=== PATIENT | female | born 1995 | race American Indian/Alaskan Native ===

== ENCOUNTER 2017-01-10 17:31 | Emergency (ER) | payer MEDICAID ==
[2017-01-10 18:11] VITALS: BP 125/74
--- NOTE | 2017-01-10 18:30 | EDM.PDOC ---
ED HPI RENAL/ - General Chief Complaint: Genitourinary Problem Stated Complaint: POSSIBLE UTI Time Seen by Provider: 01/10/17 18:25 Source of Information: Reports: Patient History Limitations: Reports: No limitations - History of Present Illness INITIAL COMMENTS - FREE TEXT/NARRATIVE: This 21 yo female patient reports to the ED with urinary frequency (started 2 weeks ago) and burning with urination (started 2 days ago). The patient reports she has attempted to get into the clinic, but has not been seen yet due to insurance issues. Symptom Onset Date: 12/28/16 Timing/Duration: Reports: Constant, Getting worse Location: Reports: generalized (burning with urination and frequency) Quality: Reports: burning Severity: moderate Improves with: Reports: other Worsens with: Reports: other Context: Reports: other Associated Symptoms: Reports: burning, frequency - Related Data Allergies/ADRs: Allergies Allergy/AdvReac Type Severity Reaction Status Date / Time No Known Allergies Allergy Verified 07/02/16 01:48 Home Meds: Home Meds . 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: Musculoskeletal History: Reports: None Neurological History: Reports: None Psychiatric History: Reports: Anxiety, Depression Endocrine/Metabolic History: Reports: None Hematologic History: Reports: Anemia Immunologic History: Reports: None Oncologic (Cancer) History: Reports: None Dermatologic History: Reports: None - Infectious Disease History Infectious Disease History: Reports: None - Past Surgical History Head Surgeries/Procedures: Reports: None HEENT Surgical History: Reports: None Cardiovascular Surgical History: Reports: None Respiratory Surgical History: Reports: None GI Surgical History: Reports: None Female Surgical History: Reports: None Endocrine Surgical History: Reports: None Neurological Surgical History: Reports: None Musculoskeletal Surgical History: Reports: None Oncologic Surgical History: Reports: None Dermatological Surgical History: Reports: None Social & Family History - Family History Family Medical History: Noncontributory Psychiatric: Reports: Depression, Panic attack - Tobacco Use Smoking Status *Q: Never Smoker Second Hand Smoke Exposure: No - Caffeine Use Caffeine Use: Reports: Tea - Recreational Drug Use Recreational Drug Use: No ED ROS GENERAL - Review of Systems Review Of Systems: ROS reveals no pertinent complaints other than HPI. ED EXAM, RENAL/ - Physical Exam Exam: See Below Exam Limited By: No limitations General Appearance: alert, WD/WN, mild distress Eye Exam: bilateral eye: EOMI, normal inspection, PERRL Ears: normal external exam, normal canal, hearing grossly normal, normal TMs Nose: normal inspection, normal mucosa, no blood Throat/Mouth: Normal inspection, Normal lips, Normal teeth, Normal gums, Normal oropharynx, Normal voice, No airway compromise Head: atraumatic, normocephalic Neck: normal inspection, supple, non-tender, full range of motion Respiratory/Chest: no respiratory distress, lungs clear, normal breath sounds, no accessory muscle use, chest non-tender Cardiovascular: normal peripheral pulses, regular rate, rhythm, no edema, no gallop, no JVD, no murmur, no rub GI/Abdominal: normal bowel sounds, soft, non tender, no organomegaly, no distention, no abnormal bruit, no mass (Female) Exam: Deferred Rectal (Female) Exam: Deferred Back Exam: normal inspection, full range of motion, NT Extremities: normal inspection, normal range of motion, non-tender, normal capillary refill, no pedal edema Neurological: alert, oriented, CN II-XII intact, normal cognition, normal gait, normal reflexes, no motor/sensory deficits Psychiatric: normal affect, normal mood Skin Exam: Warm, Dry, Intact, Normal color, No rash Lymphatic: no adenopathy Course - Vital Signs Last Recorded V/S: Last Vital Signs Temp 36.2 C 01/10/17 18:10 Pulse 98 01/10/17 18:10 Resp 16 01/10/17 18:10 BP 125/74 01/10/17 18:10 Pulse Ox 100 01/10/17 18:10 - Orders/Labs/Meds Labs: Laboratory Tests 01/10/17 01/10/17 01/10/17 Range/Units 18:07 18:34 18:34 Urine Color Yellow (YELLOW) Urine Appearance Slightly cloudy (CLEAR) Urine pH 5.0 (5.0-9.0) Ur Specific [place] 1.025 (1.005-1.030) Urine Protein Negative (NEGATIVE) Urine Glucose (UA) Negative (NEGATIVE) Urine Ketones Negative (NEGATIVE) Urine Occult Blood Negative (NEGATIVE) Urine Nitrite Negative (NEGATIVE) Urine Bilirubin Negative (NEGATIVE) Urine Urobilinogen 0.2 (0.2-1.0) mg/dL Ur Leukocyte Esterase Negative (NEGATIVE) Urine RBC 0-5 /HPF Urine WBC 0-5 (0-5/HPF) /HPF Ur Epithelial Cells Few /HPF Amorphous Sediment Few (0/HPF) /HPF Urine Bacteria Rare (0-FEW/HPF) /HPF Urine HCG, Qual Negative Urine Opiates Screen Negative (NEGATIVE) Ur Oxycodone Screen Negative (NEGATIVE) Urine Methadone Screen Negative (NEGATIVE) Ur Barbiturates Screen Negative (NEGATIVE) U Tricyclic Antidepress Negative (NEGATIVE) Ur Phencyclidine Scrn Negative (NEGATIVE) Ur Amphetamine Screen Negative (NEGATIVE) U Methamphetamines Scrn Negative (NEGATIVE) Urine MDMA Screen Negative (NEGATIVE) U Benzodiazepines Scrn Negative (NEGATIVE) Urine Cocaine Screen Negative (NEGATIVE) U Marijuana (THC) Screen Negative (NEGATIVE) Departure - Departure Time of Disposition: 19:06 Disposition: Home, Self-Care 01 Condition: good Clinical Impression: Urine frequency Forms: ED Department Discharge Care Plan Goals: The patient was advised of the examination and lab results during the visit. The patient was encouraged to continue to drink plenty of water. The patient asked if she could take cranberry pills and was advised to take the pills as directed. If the patient has any symptoms or concerns, the patient should follow -up with her primary care provider or return to the emergency department.
== END 2017-01-10 19:11 | disposition home or self-care (01) ==
LOC: DL.ED 17:31
DX: R35.0 Frequency of micturition (principal); K21.9 Gastro-esophageal reflux disease without esophagitis; F41.9 Anxiety disorder, unspecified; F32.9 Major depressive disorder, single episode, unspecified; D64.9 Anemia, unspecified; Z87.440 Personal history of urinary (tract) infections
CPT/HCPCS: 80305; 81001; 81025; 99283

== ENCOUNTER 2017-07-03 00:02 | Emergency (ER) | payer MEDICAID ==
[2017-07-03] MEDS ORDERED: Gentamicin 0.3% Ophth Soln 5 ML Bottle EYEBOTH ONE (00:03)
[2017-07-03 00:28] VITALS: BP 123/81
[2017-07-03] MEDS ORDERED: Amoxicillin/Clavulanate K 875-125 MG Tab ONE (02:24)
[2017-07-03] MEDS ORDERED: Gentamicin 0.3% Ophth Soln 5 ML Bottle ONE (02:24)
--- NOTE | 2017-07-03 02:35 | EDM.PDOC ---
ED HPI GENERAL MEDICAL PROBLEM - General Chief Complaint: Respiratory Problem Stated Complaint: SICK [id number] Time Seen by Provider: 07/03/17 01:00 Source of Information: Reports: Patient History Limitations: Reports: No Limitations - History of Present Illness INITIAL COMMENTS - FREE TEXT/NARRATIVE: c/o 3 day hx productive cough- green phlegm, sore throat, chills and yellow crusting on both eye starting this am. Nasal congestion. Headache Pain Score (Numeric/FACES): 6 - Related Data Allergies Allergy/AdvReac Type Severity Reaction Status Date / Time No Known Allergies Allergy Verified 07/03/17 00:28 Home Meds: Home Meds . 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: Musculoskeletal History: Reports: None Neurological History: Reports: None Psychiatric History: Reports: Anxiety, Depression Endocrine/Metabolic History: Reports: None Hematologic History: Reports: Anemia Immunologic History: Reports: None Oncologic (Cancer) History: Reports: None Dermatologic History: Reports: None - Infectious Disease History Infectious Disease History: Reports: None - Past Surgical History Head Surgeries/Procedures: Reports: None HEENT Surgical History: Reports: None Cardiovascular Surgical History: Reports: None Respiratory Surgical History: Reports: None Endocrine Surgical History: Reports: None Neurological Surgical History: Reports: None Musculoskeletal Surgical History: Reports: None Oncologic Surgical History: Reports: None Dermatological Surgical History: Reports: None Social & Family History - Family History Family Medical History: Noncontributory Psychiatric: Reports: Depression, Panic Attack - Tobacco Use Smoking Status *Q: Never Smoker Second Hand Smoke Exposure: No - Caffeine Use Caffeine Use: Reports: Tea - Recreational Drug Use Recreational Drug Use: No ED ROS GENERAL - Review of Systems Review Of Systems: ROS reveals no pertinent complaints other than HPI. ED EXAM, GENERAL - Physical Exam Exam: See Below Exam Limited By: No Limitations General Appearance: Alert, Mild Distress Eye Exam: Bilateral Eye: EOMI, Other (thick yellow disharge bilateral lids and inner canthus) Ears: Normal External Exam, Other (middle ear effusions, no otitis) Nose: Normal Inspection Throat/Mouth: Inflammation (posterior pharnyx) Head: Atraumatic, Normocephalic Neck: Normal Inspection, Lymphadenopathy (L), Lymphadenopathy (R) Respiratory/Chest: Wheezing (intermittent exp wheeze clear with cough) Cardiovascular: Normal Peripheral Pulses, Regular Rate, Rhythm GI/Abdominal: Normal Bowel Sounds Extremities: Normal Inspection, Normal Range of Motion Neurological: Alert, Oriented, CN II-XII Intact, Normal Cognition Skin Exam: Warm, Dry, Normal Color Course - Vital Signs Last Recorded V/S: Last Vital Signs Temp 99.0 F 07/03/17 00:15 Pulse 122 H 07/03/17 00:15 Resp 18 07/03/17 00:15 BP 123/81 07/03/17 00:15 Pulse Ox 98 07/03/17 00:15 - Orders/Labs/Meds Meds: Medications Discontinued Medications Generic Name Dose Route Start Last Admin Trade Name Leviq PRN Reason Stop Dose Admin Amoxicillin/Clavulanate Potassium Confirm 07/03/17 02:24 07/03/17 02:39 Augmentin 875 Mg/125 Mg Administered 07/03/17 02:25 1 tab Dose Administration 1 tab .ROUTE .STK-MED ONE Gentamicin Sulfate Confirm 07/03/17 02:24 07/03/17 02:40 Garamycin 0.3% Ophth Soln Administered 07/03/17 02:25 Not Given Dose 5 ml .ROUTE .STK-MED ONE Departure - Departure Time of Disposition: 02:30 Disposition: Home, Self-Care 01 Condition: Good Clinical Impression: Conjunctivitis Qualifiers: Conjunctivitis type: acute Acute conjunctivitis type: unspecified Laterality: bilateral Qualified Code(s): H10.33 - Unspecified acute conjunctivitis, bilateral Acute bronchitis Qualifiers: Bronchitis organism: unspecified organism Qualified Code(s): J20.9 - Acute bronchitis, unspecified - Discharge Information Instructions: Acute Bronchitis, [id number]-Cilb Forms: ED Department Discharge Additional Instructions: increase fluid tylenol or ibuprofen for discomfort/fever humidifier augmentin 875mg one twice daily for one week gentamicin eye drops 4 times daily for 5 days to affected eye
== END 2017-07-03 02:45 | disposition home or self-care (01) ==
LOC: DL.ED 00:02
DX: J20.9 Acute bronchitis, unspecified (principal); H10.33 Unspecified acute conjunctivitis, bilateral; K21.9 Gastro-esophageal reflux disease without esophagitis; F32.9 Major depressive disorder, single episode, unspecified; Z87.440 Personal history of urinary (tract) infections
CPT/HCPCS: 87081; 87430; 99283; A9270

== ENCOUNTER 2018-04-05 00:18 | Observation (INO) | payer MEDICAID ==
[2018-04-05] MEDS ORDERED: hydrOXYzine HCl 25 MG Tab PO ONE (01:04)
[2018-04-05] MEDS ORDERED: metroNIDAZOLE 250 MG Tab PO ONE (02:57)
[2018-04-05] MEDS ORDERED: Lactated Ringers 1,000 ML IV ONE (02:57)
[2018-04-05 07:08] VITALS: BP 87/50
--- NOTE | 2018-04-05 17:32 | OBOUT ---
DATE: 04/05/2018 INDICATION FOR NST: The patient believes she is in labor at 36 weeks' gestation. REPORT: Baseline heart rate 145 beats per minute with moderate beat-to- beat variability. Accelerations are noted. [place] initially showed contractions every 3 to 4 minutes, and they spaced out to every 10 and irregular. ASSESSMENT: Category 1 reactive and reassuring non-stress test. [facility] /[id number] ARIA
--- NOTE | 2018-04-05 20:15 | OBOUT ---
DATE: 04/05/2018 SUBJECTIVE: A 22-year-old female presented to Labor and Delivery with her complaining of right-sided abdominal pain, shooting down into the leg at times, in pain off and on that feels like contractions. Reports that it happened for the last 2 nights, but then tonight, it would stop and started around 11:00 at night, has not gotten any better. No vaginal bleeding, had some spotting last night twice on the toilet paper after voiding. Otherwise, no leakage of fluid. movement has been good. No other complaints consistent with labor or preeclampsia. care has been excellent. Currently at 36 weeks' gestation. records were available for review. Blood type is A positive. No known infectious diseases. OBJECTIVE: Vital Signs: Have remained stable throughout the night. She has been afebrile. Pulse from 86 to 94, blood pressure is 87/50, highest 118/69, respiratory rate of 16 on average. Heart: Regular rate and rhythm without murmur. Lungs: Clear to auscultation bilaterally. Abdomen: Gravid, soft, and nontender. Vaginal: heart tones in the 145 to 150 range for baseline, moderate variability, reactive tracing. Initially, [place] was showing contractions every 2 to 4 minutes which spaced out every 10 and then irregular. Uterus was only of mild in consistency. Resting uterine tone was soft. Nurse did serial cervical exams. First one was 1 cm dilated with cheek consistency of the cervix; second, the cervix was much more soft, mostly in mid position instead of anterior; and then the final check of the cervix actually seemed to be firmed up a little bit more; and the entire time, it not dilated beyond 1 cm. LABORATORY DATA: Urinalysis remarkable only for clue cells being seen, trace blood, trace leukocyte esterase, and wbc's only 5 to 10. ASSESSMENT: 1. False labor. 2. Bacterial vaginosis. 3. 2, para 1-0-0-1 at 36 weeks' gestation. PLAN: The patient will be discharged home, and I discussed with her signs and symptoms of labor that should bring her back to the hospital. Also, if she develops any signs or symptoms of preeclampsia, that should be checked. Her questions were answered, and she was in agreement with the above. Her clinic appointment for today can be canceled. [facility] /[id number]
== END 2018-04-05 07:20 | disposition home or self-care (01) ==
LOC: DL.OBCHECK 00:18 → DL.OB 03:00
PROVIDERS: ADMIT Family Medicine; ATTEND Family Medicine
DX: O47.03 False labor before 37 completed weeks of gestation, third trimester (principal); O23.593 Infection of other part of genital tract in pregnancy, third trimester; N76.0 Acute vaginitis; B96.89 Other specified bacterial agents as the cause of diseases classified elsewhere; Z3A.36 36 weeks gestation of pregnancy
CPT/HCPCS: 81001; A9270; J7120

== ENCOUNTER 2018-05-12 07:11 | Inpatient (IN) | payer MEDICAID ==
[2018-05-12] MEDS ORDERED: Lactated Ringers 500 ML IV ONE (08:13)
[2018-05-12] MEDS ORDERED: Acetaminophen 325 MG Tab PO PRN (08:13)
[2018-05-12] MEDS ORDERED: Lidocaine 1% 30 ML SDV INJECT PRN (08:13)
[2018-05-12] MEDS ORDERED: Misoprostol 400 MCG (4 X 100 MCG TAB) RECTAL PRN (08:13)
[2018-05-12] MEDS ORDERED: Carboprost Tromethamine 250 MCG/1 ML Amp IM PRN (08:13)
[2018-05-12] MEDS ORDERED: Tranexamic Acid 1,000 MG in Sodium Chloride 0.9% 100 ML IV PRN (08:13)
[2018-05-12] MEDS ORDERED: Sodium Chloride 0.9% 10 ML Syringe FLUSH PRN (08:13)
[2018-05-12] MEDS ORDERED: Ondansetron 4 MG/2 ML SDV IV PRN (08:13)
[2018-05-12] MEDS ORDERED: Methylergonovine 0.2 MG/1 ML Amp IM PRN (08:13)
--- NOTE | 2018-05-12 08:30 | PCM.SN ---
- Free Text/Narrative Note: OB History and Physical Chief Complaint: Induction of labor HPI: 22 year old at 41w2d who presents for induction of labor for post gestation. She generally feels well today. No acute concerns or complaints. She reports active movement. No vaginal bleeding or leaking of fluid, but she does feel like she is loosing more of her mucous plug. She did feel like she started joe yesterday afternoon. She rates her contractions as a 4/10. ROS: Negative for headache, nausea, vomiting, diarrhea, fever, chills, abdominal pain, hematuria or dysuria.. Medical History: Mild anxiety Surgical History: None reported Family History: Mom with thyroid disease, Dad unknown history. Sister with Asthma Social History: Never smoker. Denies drinking or recreational drug use. Lives with and her first child. Labs: OB Panel: Blood Type: A Positive Antibodies: Negative RPR: Nonreactive HIV: Nonreactive Hep B s Ag: Nonreactive Hep C Ab: Nonreactive Gonorrhea/Chlamydia: Not Detected GBS: Negative Physical Exam: Vitals reviewed and stable Gen: No distress CV: Well-perfused, 2+ distal pulses, regular rate and rhythm, no audible murmurs Resp: Non-labored, symmetrical chest expansion, clear to auscultation Abd: gravid, soft, non tender Ext: Moves all extremities, no edema. SVE: 4/80/-2 FHT: 150, moderate variability, accelerations present, no decelerations CTX: Q 4-5 mins Assessment: 22 year old at 41w2d who presents for induction of labor for post gestation. Cat I Strip. Plan: - Admit to Labor and Delivery - AROM - Monitor for 2 hours then recheck cervix, if not much change, will consider staring pitocin - Routine cares
[2018-05-12] MEDS: Lactated Ringers 1,000 ML IV SCH ×2 (09:55→19:54)
[2018-05-12] MEDS ORDERED: EPINEPHrine 1 MG/ML SDV ONE (16:30)
[2018-05-12] MEDS ORDERED: Bupivacaine 0.75%/D5W 2 ML Amp ONE (16:30)
--- NOTE | 2018-05-12 17:15 | PCM.PRNOTE ---
- Free Text/Narrative Note: Requested to provide analgesia to full term patient in severe pain. Upon entering the room, patient is supine in bed complaining of severe abdominal/ pelvic pain and discomfort. Procedure was discussed with patient including adverse outcomes and expectations. Pt consented to analgesia, SAB/IT. Pt placed into a sitting position. Landmarks for SAB/IT were identified and marked. Hands were washed and appropriate PPE was applied. Back was prepped with betadine x3. A sterile, transparent, fenestrated drape was applied. Excess betadine was removed. Using 3 mL of a 1% lidocaine solution, a skin wheel was placed at the L3/L4 interspace. A 24 ga (4 inch) [place] spinal needle was inserted until positive for CSF. Negative for heme or paresthesias. Injected fentanyl 20 mcg, sufentanil 20 mcg, and 9 mg of a 0.75% bupivacaine solution with an epi wash. Pt was placed left lateral position for approximately 20 minutes. There were zero complications or adverse outcomes. Will continue to monitor. Procedure Date & Time: 05/12/18 [id number]
[2018-05-12] MEDS: fentaNYL 100 MCG/2 ML SDV ONE ×2 (20:07→21:24)
[2018-05-12] MEDS ORDERED: Nalbuphine 10 MG/1 ML Vial IV ONE (20:36)
[2018-05-12] MEDS ORDERED: fentaNYL 100 MCG/2 ML SDV ONE (21:22)
[2018-05-12] MEDS ORDERED: Oxytocin/Normal Saline 30 UNIT/500 ML BAG IV SCH (21:30)
--- NOTE | 2018-05-12 22:08 | PCM.DEL ---
L & D Note - General Info Date of Service: 05/12/18 Mother's Due Date: 05/03/18 - Delivery Note Labor: Induced by ARM Delivery Outcome: Livebirth Delivery Method: Spontaneous Vaginal Delivery-Single Infant Delivery Mode: Spontaneous Presentation: Left Occiput Anterior (NUNU) Nuchal Cord: Present (delivered through) Anesthesia Type: Intrathecal (given at 1645) Amniotic Fluid Description: Meconium Stained Episiotomy Type: None Laceration: 1st Degree, Periurethral (bilateral) Placenta: Intact, Spontaneous Cord: 3 Vessels Estimated Blood Loss: 200 Resuscitation Needed: Yes [place]: Bulb Syringe, Stimulated, Warmer Used Score 1 min: 4 Score 5 min: 7 Score 10 min: 8 Second Stage Interventions: Reports: Pushing Effectively Induction Criteria - White Score White Score Dilation: 3-4 cm White Score Effacement: 60-70% White Score 's Station: -2 White Score Consistency: Soft White Score Cervix Position: Midposition White Score Total: 8 White Score Presenting Part: Reports: Cephalic - Induction Gestational Age >/= 39 wks: Yes Medical Indication: post dates Estimated Pelvis: Reports: Adequate Reassuring Monitoring Strip: Yes Absence of Tachy Systole: Yes - General Info Date of Service: 05/12/18 - Problem List & Annotations (1) Spontaneous vaginal delivery SNOMED Code(s): 49422425 Code(s): O80 - ENCOUNTER FOR FULL-TERM UNCOMPLICATED DELIVERY Status: Acute Current Visit: Yes Annotation/Comment:: Delivered 05/12/18 @ 2143 (2) Anemia affecting SNOMED Code(s): 30692361 Code(s): O99.019 - ANEMIA COMPLICATING , UNSPECIFIED TRIMESTER Status: Acute Current Visit: No Qualifiers: Trimester: third trimester Qualified Code(s): O99.013 - Anemia complicating , third trimester Annotation/Comment:: 10.2 on admission (3) Rubella non-immune status, antepartum SNOMED Code(s): 371200980 Code(s): O99.89 - OTH DISEASES AND CONDITIONS COMPL PREG/CHLDBRTH; Z28.3 - UNDERIMMUNIZATION STATUS Status: Acute Current Visit: No - Problem List Review Problem List Initiated/Reviewed/Updated: Yes - Assessment Assessment:: 22 year old female at 41w2d ega s/p spontaneous vaginal delivery who is doing well - Plan Plan:: 1. Routine Cares 2. Encourage breast feeding 3. Will monitor closely JS
[2018-05-12] MEDS ORDERED: fentaNYL 100 MCG/2 ML SDV IVPUSH ONE (22:37)
[2018-05-13] MEDS ORDERED: Tranexamic Acid 1,000 MG in Sodium Chloride 0.9% 100 ML IV PRN (02:05)
[2018-05-13] MEDS ORDERED: Simethicone 80 MG Tab.Chew PO PRN (02:05)
[2018-05-13] MEDS ORDERED: Carboprost Tromethamine 250 MCG/1 ML Amp IM PRN (02:05)
[2018-05-13] MEDS ORDERED: Benzocaine/Menthol 20%-0.5% Spray 56 GM Canister TOP PRN (02:05)
[2018-05-13] MEDS ORDERED: Misoprostol 400 MCG (4 X 100 MCG TAB) RECTAL PRN (02:05)
[2018-05-13] MEDS ORDERED: Acetaminophen 325 MG Tab PO PRN (02:05)
[2018-05-13] MEDS ORDERED: Sodium Chloride 0.9% 10 ML Syringe FLUSH PRN (02:05)
[2018-05-13] MEDS ORDERED: Oxytocin 10 Units/1 ML SDV IM PRN (02:05)
[2018-05-13] MEDS ORDERED: Zolpidem 5 MG Tab PO PRN (02:05)
[2018-05-13] MEDS: Ibuprofen 800 MG Tab PO PRN (11:28)
[2018-05-13] MEDS: Prenatal Multivitamin with Calcium/Folic Acid/Iron Tab PO SCH (11:28)
[2018-05-13] MEDS: Docusate Sodium 100 MG Cap PO PRN ×2 (11:28→17:55)
--- NOTE | 2018-05-13 12:21 | PCM.SN ---
- Free Text/Narrative Note: Date: 05/13/18 Subjective: Patient stated she is doing well. She does have some lower back pain that she thinks may be due to either the intrathecal or the delivery. No chest pain or shortness of breath. No swelling. She is breast feeding without difficulty. She noted her bleeding is about like a period and cramping is minimal. Objective: Vitals reviewed and stable CV: RRR, clear S1/S2, no murmurs appreciated Resp: CTAB, no crackles or wheezes Abd: Fundus firm and below the umbilicus Ext: No edema, 2+ pulses Assessment: 22 y/o healthy female s/p day 1 from of a healthy term boy at 41w2d ega. Plan: Encourage breast feeding Encourage ambulation Anticipate discharge home tomorrow Continue routine cares
[2018-05-13] MEDS ORDERED: Measles, Mumps & Rubella Vaccine 0.5 ML SDV SUBCUT ONE (20:20)
[2018-05-14 08:41] VITALS: BP 106/71
[2018-05-14] MEDS: Docusate Sodium 100 MG Cap PO PRN (08:59)
[2018-05-14] MEDS: Prenatal Multivitamin with Calcium/Folic Acid/Iron Tab PO SCH (08:59)
[2018-05-14] MEDS: Ibuprofen 800 MG Tab PO PRN (08:59)
--- NOTE | 2018-05-14 11:46 | PCM.SN ---
- Free Text/Narrative Note: Progress Note/Discharge Summary Date of Delivery: 05/12/18 @ 2143 Date of Discharge: 05/14/18 Admission Diagnosis: Induction of Labor for post dates Discharge Diagnosis: s/p Consults: none Procedures: delivery Brief Hospital Course: 22 y/o G2 now P2 mom was admitted at 41w2d eg for induction of labor of post gestation. Patient had been noting some contractions that started the day before, but they were not regular and were only rating a 4/ 10. Artificial rupture of membranes was performed for induction. She began contraction more regularly and progressed without other intervention. She delivered a healthy term male at 2143. Minor periurethral lacerations were noted that did not require repair. Mom has been doing well ambulating. She reports her bleeding is like a period. Physical Exam: Gen: alert and oriented, no acute distress CV: regular rate and rhythm, clear s1 and s2 Resp: non labored, clear to auscultation Abd: soft, uterus firm and below umbilicus Ext: no edema, 2+ pulses Discharge Follow Up: Follow up for post visit in 6 weeks, or sooner if needed Baby Boy "Jarod" will be seen in 2-3 days Discharge instructions printed and given to patient Disposition: Discharge home in stable condition
[2018-05-14] MEDS ORDERED: Bupivacaine 0.75%/D5W 2 ML Amp INJECT ONE (14:28)
[2018-05-14] MEDS ORDERED: EPINEPHrine 1 MG/ML SDV IV ONE (14:28)
[2018-05-14] MEDS ORDERED: fentaNYL 100 MCG/2 ML SDV ITHECAL ONE (14:28)
== END 2018-05-14 14:29 | disposition home or self-care (01) | DRG 775 ==
LOC: DL.OBCHECK 07:11 → DL.OB 08:13 → OBSVTOIN 21:43 → DL.OB 21:43 → DL.MS 05-13 07:53
PROVIDERS: ADMIT Family Medicine; ATTEND Family Medicine
PROC: 10E0XZZ Delivery of Products of Conception, External Approach (ICD-10-PCS; principal; 2018-05-12)
PROC: 3E033VJ Introduction of Other Hormone into Peripheral Vein, Percutaneous Approach (ICD-10-PCS; 2018-05-12)
PROC: 10907ZC Drainage of Amniotic Fluid, Therapeutic from Products of Conception, Via Natural or Artificial Opening (ICD-10-PCS; 2018-05-12)
PROC: 3E0S3GC Introduction of Other Therapeutic Substance into Epidural Space, Percutaneous Approach (ICD-10-PCS; 2018-05-12)
DX: O48.0 Post-term pregnancy (principal); Z37.0 Single live birth; Z3A.41 41 weeks gestation of pregnancy; O77.0 Labor and delivery complicated by meconium in amniotic fluid; O99.02 Anemia complicating childbirth; D64.9 Anemia, unspecified; O71.82 Other specified trauma to perineum and vulva
CPT/HCPCS: 01967; 36415; 59409; 85027; 90471; 90707; A9270-GY; J0171; J2300; J2405; J2590; J3010; J7120

== ENCOUNTER 2019-11-09 02:31 | Emergency (ER) | payer SELFPAY ==
[2019-11-09 02:42] VITALS: BP 124/77; PULSE 80
[2019-11-09] MEDS ORDERED: Amoxicillin/Clavulanate K 875-125 MG Tab PO ONE (02:43)
--- NOTE | 2019-11-09 02:50 | EDM.PDOC ---
ED HPI GENERAL MEDICAL PROBLEM - General Chief Complaint: ENT Problem Stated Complaint: SEVERE RIGHT EAR PAIN Time Seen by Provider: 11/09/19 02:45 Source of Information: Reports: Patient History Limitations: Reports: No Limitations - History of Present Illness INITIAL COMMENTS - FREE TEXT/NARRATIVE: This 24 yo female patient reports to the ED with a right sided ear ache. The patient reports she has had a cold for the past week, but at about 2200 last night the patient started to have increased pain in her right ear. The patient has not taken anything at this time for the pain. Onset Date: 11/08/19 Onset Time: 22:00 Duration: Constant, Getting Worse Location: Reports: Head (Right ear) Quality: Reports: Ache, Sharp, Stabbing Improves with: Reports: None Worsens with: Reports: None Context: Reports: Other Associated Symptoms: Reports: No Other Symptoms Treatments RESPITE PROVIDER: Reports: Cold Therapy Right Ear Pain Score (Numeric/FACES): 8 - Related Data Allergies Allergy/AdvReac Type Severity Reaction Status Date / Time latex Allergy Cannot Verified 11/09/19 02:35 Remember Home Meds: Home Meds FLUoxetine HCl [Fluoxetine HCl] 40 mg PO DAILY 11/09/19 [History] Past Medical History - Past Health History Medical/Surgical History: Denies Medical/Surgical History HEENT History: Reports: None Cardiovascular History: Reports: Other (See Below) Other Cardiovascular History: hypotension syndrome Respiratory History: Reports: None Gastrointestinal History: Reports: Chronic Constipation, GERD Genitourinary History: Reports: UTI, Recurrent MOLD PARTER History: Reports: , Other (See Below) Other MOLD PARTER History: yeast infections, vaginitis Musculoskeletal History: Reports: None Neurological History: Reports: None Psychiatric History: Reports: Anxiety, Depression Endocrine/Metabolic History: Reports: None Hematologic History: Reports: Anemia Immunologic History: Reports: None Oncologic (Cancer) History: Reports: None Dermatologic History: Reports: None - Infectious Disease History Infectious Disease History: Reports: Chicken Pox - Past Surgical History Head Surgeries/Procedures: Reports: None HEENT Surgical History: Reports: None Cardiovascular Surgical History: Reports: None Respiratory Surgical History: Reports: None Endocrine Surgical History: Reports: None Neurological Surgical History: Reports: None Musculoskeletal Surgical History: Reports: None Oncologic Surgical History: Reports: None Dermatological Surgical History: Reports: None Social & Family History - Family History Family Medical History: Noncontributory Psychiatric: Reports: Depression, Panic Attack - Tobacco Use Smoking Status *Q: Unknown Ever Smoked Second Hand Smoke Exposure: No - Caffeine Use Caffeine Use: Reports: None Other Caffeine Use: 1.5 c/day - Recreational Drug Use Recreational Drug Use: No ED ROS ENT - Review of Systems Review Of Systems: Comprehensive ROS is negative, except as noted in HPI. ED EXAM, ENT - Physical Exam Exam: See Below Exam Limited By: No Limitations General Appearance: Alert, WD/WN, Moderate Distress Eye Exam: Bilateral Eye: EOMI, Normal Inspection, PERRL Ears: TM Erythema (right), TM Fluid (right) Nose: Normal Inspection, Normal Mucousa, No Blood Mouth/Throat: Normal Inspection, Normal Gums, Normal Lips, Normal Oropharynx, Normal Teeth Head: Atraumatic, Normocephalic Neck: Normal Inspection, Supple, Non-Tender, Full Range of Motion Respiratory/Chest: No Respiratory Distress, Lungs Clear, Normal Breath Sounds, No Accessory Muscle Use, Chest Non-Tender Cardiovascular: Normal Peripheral Pulses, Regular Rate, Rhythm, No Edema, No Gallop, No JVD, No Murmur, No Rub GI/Abdominal: Normal Bowel Sounds, Soft, Non-Tender, No Organomegaly, No Distention, No Abnormal Bruit, No Mass Neurological: Alert, Oriented, CN II-XII Intact, Normal Cognition, Normal Gait, Normal Reflexes, No Motor/Sensory Deficits Psychiatric: Normal Affect, Normal Mood Skin: Warm, Dry, Intact, Normal Color, No Rash Lymphatic: No Adenopathy Course - Vital Signs Last Recorded V/S: Last Vital Signs Temp 36.2 C 11/09/19 02:41 Pulse 80 11/09/19 02:41 Resp 16 11/09/19 02:41 BP 124/77 11/09/19 02:41 Pulse Ox 100 11/09/19 02:41 - Orders/Labs/Meds Meds: Medications Discontinued Medications Generic Name Dose Route Start Last Admin Trade Name Katelynn PRN Reason Stop Dose Admin Amoxicillin/Clavulanate Potassium 1 tab 11/09/19 02:43 11/09/19 02:47 Augmentin 875 Mg/125 Mg PO 11/09/19 02:44 1 tab ONETIME ONE Administration Departure - Departure Time of Disposition: 02:44 Disposition: Home, Self-Care 01 Condition: Fair Clinical Impression: Otitis media Qualifiers: Otitis media type: serous Chronicity: acute Laterality: right Recurrence: non- recurrent Qualified Code(s): H65.01 - Acute serous otitis media, right ear - Discharge Information *PRESCRIPTION DRUG MONITORING PROGRAM REVIEWED*: Not Applicable *COPY OF PRESCRIPTION DRUG MONITORING REPORT IN PATIENT TR: Not Applicable Instructions: Otitis Media, Adult, [id number] Forms: ED Department Discharge Care Plan Goals: The patient and family were advised of the examination results during the visit. The patient was given an oral dose of Augmentin while in the ED. The patient was discharged with a script for Augmentin (875/125) #14 to take 1 by mouth 2 times per day for 7 days. The patient may take Tylenol or ibuprofen as directed for temporary symptom relief. If the patient has any additional symptoms or concerns, the patient should visit her primary care facility or return to the emergency department. Sepsis Event Note - Evaluation Sepsis Screening Result: No Definite Risk - Focused Exam Vital Signs: Vital Signs Temp Pulse Resp BP Pulse Ox 11/09/19 02:41 36.2 C 80 16 124/77 100 Date Exam was Performed: 11/09/19 Time Exam was Performed: 02:51
== END 2019-11-09 02:53 | disposition home or self-care (01) ==
LOC: DL.ED 02:31
DX: H65.01 Acute serous otitis media, right ear (principal); F41.9 Anxiety disorder, unspecified; Z91.040 Latex allergy status; Z79.899 Other long term (current) drug therapy
CPT/HCPCS: 99282; A9270